=== PATIENT | female | born 1955 | race Caucasian/White ===

== ENCOUNTER 2019-01-21 09:39 | Emergency (ER) | payer MEDICARE, MEDICAID ==
[~2019-01-21] VITALS: Ht 162.6 cm; Wt 97.8 kg
[~2019-01-21 09:39] MED LIST: HYDR-3686 PO; LORA1TAB PO; METH-603 PO; NORCO10T PO; PROM25TA14
[2019-01-21] MEDS ORDERED: LORazepam 1 MG tablet PO ONE (10:15)
[2019-01-21] MEDS ORDERED: ondansetron 4mg rapidly disintigrating tab PO ONE (10:25)
[2019-01-21 10:57] VITALS: BP 124/73
== END 2019-01-21 10:58 | disposition home or self-care (01) ==
LOC: ER 09:40
DX: F41.9 Anxiety disorder, unspecified (principal); R11.2 Nausea with vomiting, unspecified; F32.9 Major depressive disorder, single episode, unspecified; G89.29 Other chronic pain; Z88.0 Allergy status to penicillin; Z88.5 Allergy status to narcotic agent; Z79.899 Other long term (current) drug therapy; Z56.0 Unemployment, unspecified
CPT/HCPCS: 99284; J2405

== ENCOUNTER 2021-01-20 08:06 | Emergency (ER) | payer MEDICARE, MEDICAID ==
[~2021-01-20] VITALS: Ht 162.6 cm; Wt 95.0 kg
[2021-01-20 08:34] VITALS: BP 147/91
== END 2021-01-20 09:13 | disposition home or self-care (01) ==
LOC: ER 08:06
DX: S80.211A Abrasion, right knee, initial encounter (principal); G89.29 Other chronic pain; Z87.01 Personal history of pneumonia (recurrent); Z86.19 Personal history of other infectious and parasitic diseases; Z56.0 Unemployment, unspecified; W19.XXXA Unspecified fall, initial encounter; Y93.89 Activity, other specified; Y92.89 Other specified places as the place of occurrence of the external cause; Y99.8 Other external cause status
CPT/HCPCS: 99281; 99282

== ENCOUNTER 2023-04-18 17:53 | Emergency (ER) | payer BC, MEDICAID ==
[~2023-04-18] VITALS: Ht 162.6 cm; Wt 80.0 kg
[2023-04-18 17:58] VITALS: BP 117/63; PULSE 98; RESP 16; TEMP 97.9; O2SAT 98
[2023-04-18 18:46] LABS: BASOPHILS % (AUTO) 0.9 % (0-1); EOSINOPHILS # (AUTO) 0.1 X10'3 (0-0.9); EOSINOPHILS % (AUTO) 1.6 % (0-6); HEMOGLOBIN 14.4 g/dl (12.0-16.0); LYMPHOCYTES # (AUTO) 1.1 X10'3 (1.1-4.8); LYMPHOCYTES % (AUTO) 20.9 % (21-51); MEAN CORPUSCULAR HGB CONC 32.6 g/dL (33.0-36.5); MEAN PLATELET VOLUME 9.1 FL (7.4-10.4); MONOCYTES # (AUTO) 0.3 X10'3 (0-0.9); NEUTROPHILS # (AUTO) 3.7 X10'3 (1.8-7.7); NEUTROPHILS % (AUTO) 70.6 % (42-75); PLATELET COUNT 84 X10'3 (140-440); RED BLOOD COUNT 4.78 X10'6 (4.20-5.60); RED CELL DISTRIBUTION WIDTH 15.4 % (11.5-14.5); WHITE BLOOD COUNT 5.2 X10'3 (4.5-11.0)
[2023-04-18 19:13] LABS: ALANINE AMINOTRANSFERASE 30 U/L (12-78); ALBUMIN 3.3 G/DL (3.4-5.0); ALBUMIN/GLOBULIN RATIO 0.8 (1.1-1.5); ALKALINE PHOSPHATASE 123 IU/L (46-116); AMYLASE 35 U/L (25-115); ANION GAP 6 (8-16); ASPARTATE AMINO TRANSFERASE 69 U/L (10-37); BILIRUBIN,TOTAL 0.5 MG/DL (0.1-1.0); BLOOD UREA NITROGEN 21 MG/DL (7-18); BUN/CREATININE RATIO 22.8 (10.0-20.0); CALCIUM 9.5 MG/DL (8.5-10.1); CHLORIDE 104 MMOL/L (99-107); CREATININE 0.92 MG/DL (0.40-0.90); GLUCOSE 93 MG/DL (70-104); POTASSIUM 4.3 MMOL/L (3.5-5.1); SODIUM 140 MMOL/L (135-145); TOTAL CARBON DIOXIDE 29.9 MMOL/L (24-32); TOTAL PROTEIN 7.7 G/DL (6.4-8.2); eCRCL 50 ML/MIN; eGFR 61 ML/MIN
[2023-04-18 19:14] LABS: LIPASE 31 U/L (16-77)
== END 2023-04-18 22:02 | disposition left against medical advice (07) ==
LOC: ER 17:54
DX: R42 Dizziness and giddiness (principal); R53.1 Weakness; Z53.21 Procedure and treatment not carried out due to patient leaving prior to being seen by health care provider
CPT/HCPCS: 36415; 80053; 82140; 82150; 83690; 85025; 99281

== ENCOUNTER 2024-03-25 10:37 | Inpatient (IN) | payer MEDICARE, MEDICAID ==
[~2024-03-25] VITALS: Ht 160 cm; Wt 75.0 kg
[~2024-03-25 10:37] MED LIST changes: +ALBU10.7; +APIX5TAB3 PO; +BENZ200C53; +BUPR1FIL20; +CEFD300C3 PO; +FLUT1BLS16; -HYDR-3686 PO; -METH-603 PO; +MIRT-88 PO; +NALO4SPR5; +NICO-631 TOP; -NORCO10T PO; +ONDA-243 PO; +PRED20TA PO; -PROM25TA14
[2024-03-25] MEDS: ondansetron/PF 4mg/2ml inj IV ONE (11:35)
[2024-03-25] MEDS: lactulose 20gm/30ml cup PO ONE (11:36)
[2024-03-25] MEDS: morphine 4 MG/ML inj SYRINge IV ONE ×2 (11:36→12:23)
[2024-03-25 11:52] LABS: BILIRUBIN,URINE NEGATIVE (Neg); CLARITY,URINE CLOUDY (Clear); COLOR,URINE YELLOW (Yellow); GLUCOSE, URINE NEGATIVE (Neg); KETONES,URINE NEGATIVE (Neg); LEUKOCYTE ESTERASE ,URINE NEGATIVE (Neg); NITRITES, URINE NEGATIVE (Neg); OCCULT BLOOD,URINE NEGATIVE (Neg); PROTEIN,URINE NEGATIVE (Neg)
[2024-03-25 11:59] LABS: BACTERIA,URINE 4+ /HPF (Neg); RBC,URINE NONE SEEN /HPF (0-2); SQUAMOUS EPITHELIAL CELL,UR MANY /LPF (FEW); UA COLLECTION TYPE CLN CATCH MIDSTREAM; WBC,URINE 0-4 /HPF (0-4)
[2024-03-25 12:00] LABS: AMORPHOUS PHOSPHATES 1+; MUCUS STRANDS MANY /LPF (Neg)
[2024-03-25 12:53] LABS: BASOPHILS % (AUTO) 0.3 % (0-1); EOSINOPHILS % (AUTO) 0.2 % (0-6); HEMATOCRIT 50.8 % (35.0-45.0); HEMOGLOBIN 17.1 g/dl (12.0-16.0); LYMPHOCYTES % (AUTO) 9.2 % (21-51); MEAN CORPUSCULAR HEMOGLOBIN 31.4 PG (27.0-31.0); MEAN CORPUSCULAR HGB CONC 33.6 g/dL (33.0-36.5); MEAN CORPUSCULAR VOLUME 93.5 FL (78-98); MEAN PLATELET VOLUME 9.2 FL (7.4-10.4); MONOCYTES # (AUTO) 0.6 X10'3 (0-0.9); MONOCYTES % (AUTO) 5.7 % (2-12); NEUTROPHILS # (AUTO) 9.2 X10'3 (1.8-7.7); NEUTROPHILS % (AUTO) 84.6 % (42-75); PLATELET COUNT 75 X10'3 (140-440); RED BLOOD COUNT 5.44 X10'6 (4.20-5.60); WHITE BLOOD COUNT 10.9 X10'3 (4.5-11.0)
[2024-03-25 13:06] LABS: ALANINE AMINOTRANSFERASE 15 U/L (12-78); ALBUMIN 3.2 G/DL (3.4-5.0); ALBUMIN/GLOBULIN RATIO 0.7 (1.1-1.5); ALKALINE PHOSPHATASE 124 IU/L (46-116); ANION GAP 11 (8-16); ASPARTATE AMINO TRANSFERASE 20 U/L (10-37); BILIRUBIN,TOTAL 1.7 MG/DL (0.1-1.0); BLOOD UREA NITROGEN 18 MG/DL (7-18); BUN/CREATININE RATIO 16.4 (10.0-20.0); CALCIUM 9.8 MG/DL (8.5-10.1); CHLORIDE 101 MMOL/L (99-107); GLUCOSE 124 MG/DL (70-104); POTASSIUM 3.7 MMOL/L (3.5-5.1); SODIUM 138 MMOL/L (135-145); TOTAL CARBON DIOXIDE 25.8 MMOL/L (24-32); TOTAL PROTEIN 8.1 G/DL (6.4-8.2); eCRCL 39 ML/MIN; eGFR 49 ML/MIN
[2024-03-25] MEDS ORDERED: hyoscyamine 0.125mg TAB.SUBL SL PRN (15:15)
[2024-03-25] MEDS ORDERED: acetaminophen 325mg tablet PO PRN (15:15)
[2024-03-25] MEDS ORDERED: LORazepam 2 mg/ml vial IV PRN (15:15)
[2024-03-25] MEDS ORDERED: albuterol 2.5 MG/3 ML nebule NEB PRN (15:15)
[2024-03-25] MEDS ORDERED: ipratropium/albuterol 3ml nebule NEB PRN (15:15)
[2024-03-25] MEDS ORDERED: HYDROmorphone/PF 0.2 MG/ML SYRINGE IV PRN (15:15)
[2024-03-25] MEDS ORDERED: mag hydrox/Alum hydrox/simeth 30ml oral suspension PO PRN (15:15)
[2024-03-25] MEDS ORDERED: POTA-192 PO (16:04)
[2024-03-25] MEDS ORDERED: HALO2ORA3 PO (16:04)
[2024-03-25] MEDS ORDERED: FENT1PAT13 TOP (16:04)
[2024-03-25] MEDS ORDERED: APIX5TAB3 PO (16:04)
[2024-03-25] MEDS ORDERED: HYDR2TAB28 PO (16:04)
[2024-03-25] MEDS ORDERED: SENN-25 PO (16:04)
[2024-03-25] MEDS: HYDROmorphone 1 mg/ml syringe IV ONE (17:28)
[2024-03-25 18:00] VITALS: BP 154/73; PULSE 118; RESP 18; TEMP 97.7; O2SAT 98
[2024-03-25 18:06] VITALS: PULSE 102; RESP 17; O2SAT 92
[2024-03-25] MEDS: morphine 10mg/0.5ml (conc. morphine) oral syringe PO PRN (20:03)
[2024-03-25 21:08] VITALS: PULSE 108; RESP 18; O2SAT 93
[2024-03-25 22:00] VITALS: BP 124/63; PULSE 103; RESP 16; TEMP 97.3; O2SAT 96
[2024-03-26] MEDS: HYDROmorphone inj. 0.5 MG/0.5 ML DISP.SYRIN IV PRN (07:01)
[2024-03-26 08:25] VITALS: PULSE 102; RESP 16; O2SAT 88
[2024-03-26] MEDS: LORazepam 0.5 MG tablet PO PRN (08:40)
[2024-03-26] MEDS ORDERED: haloperidol 10mg/5ml UD oral solution PO PRN (09:50)
[2024-03-26] MEDS ORDERED: sennosides 8.6mg tablet PO PRN (09:50)
[2024-03-26] MEDS: morphine 10mg/0.5ml (conc. morphine) oral syringe PO PRN (10:10)
[2024-03-26] MEDS: nicotine 21mg patch - 24 hr TD SCH (10:10)
[2024-03-26] MEDS: fentaNYL 100MCG/hour patch.TD72 TD SCH (10:38)
[2024-03-26] MEDS: magnesium hydroxide 30ml (MOM) UD suspension PO PRN (11:47)
[2024-03-26 22:00] VITALS: BP 109/62; PULSE 104; RESP 16; TEMP 97.6; O2SAT 93
[2024-03-26] MEDS: temazepam 15mg capsule PO PRN (22:54)
[2024-03-27 07:50] VITALS: PULSE 88; RESP 16; O2SAT 90
[2024-03-27] MEDS: ondansetron/PF 4mg/2ml inj IV PRN (09:56)
[2024-03-27 10:00] VITALS: BP 107/56; PULSE 97; RESP 16; TEMP 97.7; O2SAT 92
[2024-03-27 18:00] VITALS: BP 112/58; PULSE 89; RESP 18; TEMP 98; O2SAT 91
[2024-03-27 22:00] VITALS: BP 107/61; PULSE 96; RESP 16; TEMP 97.3; O2SAT 94
[2024-03-27] MEDS: HYDROmorphone 2mg tablet PO PRN (22:19)
[2024-03-28] MEDS: diazepam 5mg tablet PO ONE (04:04)
[2024-03-28 10:00] VITALS: BP 94/61; PULSE 88; RESP 16; TEMP 98.7; O2SAT 94
[2024-03-28 10:42] VITALS: PULSE 87; RESP 16; O2SAT 92
[2024-03-28 11:07] VITALS: RESP 16
== END 2024-03-28 13:37 | disposition hospice, home (50) | DRG 443 ==
LOC: ER 10:37 → ED HOLD 15:20 → ORTHO 4S 17:50
PROVIDERS: ADMIT Family Medicine; ATTEND Family Medicine
DX: K72.10 Chronic hepatic failure without coma (principal); D69.59 Other secondary thrombocytopenia; Z66 Do not resuscitate; F32.A Depression, unspecified; F41.9 Anxiety disorder, unspecified; G89.29 Other chronic pain; M54.9 Dorsalgia, unspecified; F17.210 Nicotine dependence, cigarettes, uncomplicated; Z86.73 Personal history of transient ischemic attack (TIA), and cerebral infarction without residual deficits; I25.2 Old myocardial infarction; Z88.0 Allergy status to penicillin; Z79.01 Long term (current) use of anticoagulants; Z79.899 Other long term (current) drug therapy; Z51.5 Encounter for palliative care; Z86.711 Personal history of pulmonary embolism; R29.6 Repeated falls
CPT/HCPCS: 74018; 80053; 81001; 85025; 87081; 94760; 96374; 96375; 96376; 99285; A4615; G0378; J1170; J2270; J2405

== ENCOUNTER 2024-07-12 14:39 | Inpatient (IN) | payer MEDICARE, MEDICAID ==
[~2024-07-12] VITALS: Ht 162.6 cm; Wt 84.0 kg
[~2024-07-12 14:39] MED LIST changes: -ALBU10.7; -BENZ200C53; -BUPR1FIL20; -CEFD300C3 PO; +FENT1PAT13 TOP; -FLUT1BLS16; +HALO2ORA3 PO; +HYDR2TAB28 PO; -MIRT-88 PO; -NALO4SPR5; -NICO-631 TOP; -ONDA-243 PO; +POTA-192 PO; -PRED20TA PO; +SENN-25 PO
[2024-07-12 16:10] LABS: BASOPHILS % (AUTO) 0.1 % (0-1); EOSINOPHILS % (AUTO) 0.2 % (0-6); HEMATOCRIT 41.8 % (35.0-45.0); HEMOGLOBIN 14.1 g/dl (12.0-16.0); LYMPHOCYTES # (AUTO) 0.8 X10'3 (1.1-4.8); LYMPHOCYTES % (AUTO) 4.8 % (21-51); MEAN CORPUSCULAR HEMOGLOBIN 31.1 PG (27.0-31.0); MEAN CORPUSCULAR HGB CONC 33.7 g/dL (33.0-36.5); MEAN CORPUSCULAR VOLUME 92.3 FL (78-98); MEAN PLATELET VOLUME 8.8 FL (7.4-10.4); MONOCYTES % (AUTO) 5.8 % (2-12); NEUTROPHILS # (AUTO) 14.7 X10'3 (1.8-7.7); NEUTROPHILS % (AUTO) 89.1 % (42-75); PLATELET COUNT 108 X10'3 (140-440); RED BLOOD COUNT 4.53 X10'6 (4.20-5.60); RED CELL DISTRIBUTION WIDTH 14.4 % (11.5-14.5); WHITE BLOOD COUNT 16.5 X10'3 (4.5-11.0)
[2024-07-12 16:32] LABS: GLUCOSE 116 MG/DL (70-104); SODIUM 135 MMOL/L (135-145)
[2024-07-12 16:33] LABS: ALBUMIN 2.4 G/DL (3.4-5.0); ALBUMIN/GLOBULIN RATIO 0.6 (1.1-1.5); ALKALINE PHOSPHATASE 133 IU/L (46-116); ANION GAP 9 (8-16); ASPARTATE AMINO TRANSFERASE 16 U/L (10-37); BILIRUBIN,TOTAL 1.9 MG/DL (0.1-1.0); BLOOD UREA NITROGEN 21 MG/DL (7-18); BUN/CREATININE RATIO 21.2 (10.0-20.0); CALCIUM 9.2 MG/DL (8.5-10.1); CHLORIDE 101 MMOL/L (99-107); CREATININE 0.99 MG/DL (0.40-0.90); POTASSIUM 3.8 MMOL/L (3.5-5.1); TOTAL CARBON DIOXIDE 24.9 MMOL/L (24-32); TOTAL PROTEIN 6.6 G/DL (6.4-8.2); eCRCL 46 ML/MIN; eGFR 55 ML/MIN
[2024-07-12] MEDS: normal saline 1000ML IV soln IVB ONE (16:34)
[2024-07-12 16:41] LABS: PRO BRAIN NATRIURETIC PEPTIDE 338 PG/ML (0-125)
[2024-07-12 17:04] LABS: CREATINE KINASE 16 U/L (26-192)
[2024-07-12 17:18] LABS: ALANINE AMINOTRANSFERASE < 6 U/L (12-78); SALICYLATE 3.2 MG/DL (4.0-20.0)
[2024-07-12 17:19] LABS: ACETAMINOPHEN < 2.0 UG/ML (10-30); ETHANOL < 10 MG/DL (<10)
[2024-07-12] MEDS: normal saline 1000ml 1,000 ML IV ONE (17:35)
[2024-07-12] MEDS: CefTRIAXone/D5W-Rocephin 1gm 50 ML IV ONE (17:36)
[2024-07-12 18:06] LABS: URINE AMPHETAMINE SCREEN NEGATIVE (Neg); URINE BARBITUATE SCREEN NEGATIVE (Neg); URINE BENZODIAZEPINES SCREEN POSITIVE (Neg); URINE CANNABINOID SCREEN NEGATIVE (Neg); URINE COCAINE SCREEN NEGATIVE (Neg); URINE METHADONE SCREEN NEGATIVE (Neg); URINE OPIATE SCREEN POSITIVE (Neg); URINE PHENCYCLIDINE SCREEN NEGATIVE (Neg)
[2024-07-12 18:10] LABS: BILIRUBIN,URINE MODERATE (Neg); CLARITY,URINE CLEAR (Clear); COLOR,URINE AMBER (Yellow); GLUCOSE, URINE NEGATIVE (Neg); KETONES,URINE TRACE mg/dl (Neg); LEUKOCYTE ESTERASE ,URINE NEGATIVE (Neg); OCCULT BLOOD,URINE NEGATIVE (Neg); PROTEIN,URINE 30 mg/dl (Neg)
[2024-07-12] MEDS ORDERED: acetaminophen 650mg rectal suppository RC PRN (18:10)
[2024-07-12] MEDS ORDERED: diphenhydrAMINE 25mg capsule PO PRN (18:10)
[2024-07-12] MEDS ORDERED: acetaminophen 325mg tablet PO PRN ×2 (18:10)
[2024-07-12] MEDS ORDERED: magnesium hydroxide 30ml (MOM) UD suspension PO PRN (18:10)
[2024-07-12] MEDS ORDERED: ipratropium/albuterol 3ml nebule NEB PRN (18:10)
[2024-07-12] MEDS ORDERED: mag hydrox/Alum hydrox/simeth 30ml oral suspension PO PRN (18:10)
[2024-07-12] MEDS ORDERED: bisacodyl 10mg suppository rectal RC PRN (18:10)
[2024-07-12] MEDS ORDERED: morphine 2 MG/ML inj. syringe IV PRN ×2 (18:10)
[2024-07-12] MEDS ORDERED: diphenhydrAMINE 50 mg/ml inj IV PRN (18:10)
[2024-07-12] MEDS ORDERED: ondansetron/PF 4mg/2ml inj IV PRN (18:10)
[2024-07-12] MEDS ORDERED: ondansetron 4mg rapidly disintigrating tab PO PRN (18:10)
[2024-07-12 18:18] LABS: NITRITES, URINE NEGATIVE (Neg); UA COLLECTION TYPE STRAIGHT CATH
[2024-07-12] MEDS: azithromycin/NS 500mg/250ml 250 ML IV ONE (18:19)
[2024-07-12 18:24] LABS: BACTERIA,URINE 4+ /HPF (Neg); COARSE GRANULAR CAST 0-3 /LPF (NEGATIVE); RBC,URINE NONE SEEN /HPF (0-2); SQUAMOUS EPITHELIAL CELL,UR FEW /LPF (FEW); WBC,URINE 0-4 /HPF (0-4)
[2024-07-12 18:50] LABS: APTT 29 SECONDS (22-32); D-DIMER 6.48 MG/L FEU (0-0.50); INR 1.8 INR; PROTHROMBIN TIME 17.7 SECONDS (9.0-12.0)
[2024-07-12] MEDS: normal saline 1000ml 1,000 ML IV SCH (19:10)
[2024-07-12 19:24] LABS: PHOSPHORUS 3.5 MG/DL (2.3-4.5)
[2024-07-12] MEDS: normal saline 1000ml 1,000 ML IVB ONE (19:52)
[2024-07-12] MEDS: methylPREDNISolone sod succ 125mg/2ml vial IV SCH (19:54)
[2024-07-12] MEDS: docusate sod 100mg capsule PO SCH (19:57)
[2024-07-12 20:07] VITALS: PULSE 137; RESP 20; O2SAT 95
[2024-07-12] MEDS ORDERED: temazepam 15mg capsule PO PRN (21:00)
[2024-07-12] MEDS: ringers solution, lacted 1,000 ML IV ONE (22:14)
[2024-07-12] MEDS: midodrine 5mg tablet PO ONE (23:12)
[2024-07-13] VITALS (10 sets, daily range): BP systolic 96–133; BP diastolic 43–77; PULSE 67–112; RESP 17–21; TEMP 97.2–98.2; O2SAT 92–95
[2024-07-13 06:35] LABS: BASOPHILS % (AUTO) 0 % (0-1); EOSINOPHILS % (AUTO) 0.1 % (0-6); HEMATOCRIT 34.8 % (35.0-45.0); HEMOGLOBIN 11.8 g/dl (12.0-16.0); LYMPHOCYTES # (AUTO) 0.5 X10'3 (1.1-4.8); LYMPHOCYTES % (AUTO) 5.6 % (21-51); MEAN CORPUSCULAR HEMOGLOBIN 31.2 PG (27.0-31.0); MEAN CORPUSCULAR HGB CONC 33.9 g/dL (33.0-36.5); MEAN CORPUSCULAR VOLUME 92.1 FL (78-98); MEAN PLATELET VOLUME 8.9 FL (7.4-10.4); MONOCYTES # (AUTO) 0.2 X10'3 (0-0.9); NEUTROPHILS # (AUTO) 7.8 X10'3 (1.8-7.7); NEUTROPHILS % (AUTO) 92.3 % (42-75); PLATELET COUNT 82 X10'3 (140-440); RED BLOOD COUNT 3.77 X10'6 (4.20-5.60); RED CELL DISTRIBUTION WIDTH 14.3 % (11.5-14.5); WHITE BLOOD COUNT 8.5 X10'3 (4.5-11.0)
[2024-07-13 06:44] LABS: ALBUMIN 1.7 G/DL (3.4-5.0); ALBUMIN/GLOBULIN RATIO 0.5 (1.1-1.5); ALKALINE PHOSPHATASE 101 IU/L (46-116); ANION GAP 7 (8-16); ASPARTATE AMINO TRANSFERASE 14 U/L (10-37); BILIRUBIN,TOTAL 1.2 MG/DL (0.1-1.0); BLOOD UREA NITROGEN 17 MG/DL (7-18); BUN/CREATININE RATIO 26.2 (10.0-20.0); CALCIUM 7.8 MG/DL (8.5-10.1); CHLORIDE 110 MMOL/L (99-107); CREATININE 0.65 MG/DL (0.40-0.90); SODIUM 138 MMOL/L (135-145); TOTAL CARBON DIOXIDE 20.6 MMOL/L (24-32); eCRCL 70 ML/MIN; eGFR 90 ML/MIN
[2024-07-13 06:58] LABS: ALANINE AMINOTRANSFERASE 6 U/L (12-78); GLUCOSE 115 MG/DL (70-104)
[2024-07-13] MEDS: levoFLOXACIN-Levaquin 500mg/D5 100 ML IV SCH (08:46)
[2024-07-13] MEDS: pantoprazole 40mg Tablet.DR PO SCH (08:46)
[2024-07-13] MEDS: HYDROcodone/acetaminophen 10/325mg tab PO PRN (11:17)
[2024-07-13] MEDS ORDERED: pneumococcal 23-VAL P-sac vacc 25 mcg/0.5ml vial IMVAC ONE (11:30)
[2024-07-13] MEDS: albumin (Human) 5% 250ml 250 ML IV ONE (15:11)
[2024-07-13] MEDS: lactose-reduced food (Ensure Enlive) - 237ml bottle PO SCH (18:00)
[2024-07-14] VITALS (10 sets, daily range): BP systolic 102–134; BP diastolic 45–87; PULSE 61–97; RESP 16–22; TEMP 97.3–97.7; O2SAT 92–97
[2024-07-14 07:40] LABS: ALANINE AMINOTRANSFERASE 10 U/L (12-78); ALBUMIN 2.2 G/DL (3.4-5.0); ALBUMIN/GLOBULIN RATIO 0.7 (1.1-1.5); ALKALINE PHOSPHATASE 98 IU/L (46-116); ANION GAP 8 (8-16); BILIRUBIN,TOTAL 1.1 MG/DL (0.1-1.0); BLOOD UREA NITROGEN 23 MG/DL (7-18); BUN/CREATININE RATIO 30.7 (10.0-20.0); CALCIUM 8.5 MG/DL (8.5-10.1); CHLORIDE 108 MMOL/L (99-107); CREATININE 0.75 MG/DL (0.40-0.90); GLUCOSE 107 MG/DL (70-104); SODIUM 137 MMOL/L (135-145); TOTAL CARBON DIOXIDE 20.8 MMOL/L (24-32); TOTAL PROTEIN 5.5 G/DL (6.4-8.2); eCRCL 60 ML/MIN; eGFR 76 ML/MIN
[2024-07-14 07:54] LABS: ASPARTATE AMINO TRANSFERASE 28 U/L (10-37); POTASSIUM 4.1 MMOL/L (3.5-5.1)
[2024-07-14 08:47] LABS: BASOPHILS % (AUTO) 0.1 % (0-1); EOSINOPHILS % (AUTO) 0.1 % (0-6); HEMATOCRIT 35.7 % (35.0-45.0); LYMPHOCYTES # (AUTO) 0.5 X10'3 (1.1-4.8); LYMPHOCYTES % (AUTO) 5.5 % (21-51); MEAN CORPUSCULAR HEMOGLOBIN 31.1 PG (27.0-31.0); MEAN CORPUSCULAR HGB CONC 33.7 g/dL (33.0-36.5); MEAN CORPUSCULAR VOLUME 92.2 FL (78-98); MEAN PLATELET VOLUME 8.9 FL (7.4-10.4); MONOCYTES # (AUTO) 0.2 X10'3 (0-0.9); MONOCYTES % (AUTO) 2.8 % (2-12); NEUTROPHILS # (AUTO) 8.1 X10'3 (1.8-7.7); NEUTROPHILS % (AUTO) 91.5 % (42-75); PLATELET COUNT 81 X10'3 (140-440); RED BLOOD COUNT 3.87 X10'6 (4.20-5.60); RED CELL DISTRIBUTION WIDTH 14.2 % (11.5-14.5); WHITE BLOOD COUNT 8.8 X10'3 (4.5-11.0)
[2024-07-14] MEDS ORDERED: haloperidol 10mg/5ml UD oral solution PO PRN ×2 (12:40→13:05)
[2024-07-14] MEDS ORDERED: sennosides 8.6mg tablet PO PRN (12:40)
[2024-07-14] MEDS: diazepam inj 5 MG/ML inj. IV ONE (12:47)
[2024-07-14] MEDS ORDERED: haloperidol 1mg tablet PO PRN (13:38)
[2024-07-14] MEDS: diazepam inj 5 MG/ML inj. IM ONE (19:36)
[2024-07-14] MEDS: diazepam inj 5 MG/ML inj. IV PRN (20:24)
[2024-07-15 04:29] VITALS: RESP 17; O2SAT 95
[2024-07-15] MEDS: diazepam inj 5 MG/ML inj. IM PRN (05:41)
[2024-07-15 06:00] VITALS: BP 140/61; PULSE 71; RESP 16; TEMP 98.4; O2SAT 95
[2024-07-15 06:44] LABS: BASOPHILS % (AUTO) 0.3 % (0-1); EOSINOPHILS % (AUTO) 0 % (0-6); HEMATOCRIT 37.8 % (35.0-45.0); HEMOGLOBIN 12.7 g/dl (12.0-16.0); LYMPHOCYTES # (AUTO) 0.5 X10'3 (1.1-4.8); LYMPHOCYTES % (AUTO) 7.2 % (21-51); MEAN CORPUSCULAR HEMOGLOBIN 31.2 PG (27.0-31.0); MEAN CORPUSCULAR HGB CONC 33.7 g/dL (33.0-36.5); MEAN CORPUSCULAR VOLUME 92.7 FL (78-98); MEAN PLATELET VOLUME 8.3 FL (7.4-10.4); MONOCYTES # (AUTO) 0.3 X10'3 (0-0.9); NEUTROPHILS # (AUTO) 5.6 X10'3 (1.8-7.7); NEUTROPHILS % (AUTO) 87.5 % (42-75); PLATELET COUNT 100 X10'3 (140-440); RED BLOOD COUNT 4.08 X10'6 (4.20-5.60); RED CELL DISTRIBUTION WIDTH 14.9 % (11.5-14.5); WHITE BLOOD COUNT 6.4 X10'3 (4.5-11.0)
[2024-07-15 07:21] LABS: ALANINE AMINOTRANSFERASE 16 U/L (12-78); ALBUMIN 2.5 G/DL (3.4-5.0); ALBUMIN/GLOBULIN RATIO 0.7 (1.1-1.5); ALKALINE PHOSPHATASE 102 IU/L (46-116); ANION GAP 13 (8-16); ASPARTATE AMINO TRANSFERASE 25 U/L (10-37); BILIRUBIN,TOTAL 1.2 MG/DL (0.1-1.0); BLOOD UREA NITROGEN 21 MG/DL (7-18); BUN/CREATININE RATIO 33.3 (10.0-20.0); CALCIUM 8.7 MG/DL (8.5-10.1); CHLORIDE 110 MMOL/L (99-107); CREATININE 0.63 MG/DL (0.40-0.90); GLUCOSE 105 MG/DL (70-104); POTASSIUM 3.8 MMOL/L (3.5-5.1); SODIUM 142 MMOL/L (135-145); TOTAL CARBON DIOXIDE 19.2 MMOL/L (24-32); TOTAL PROTEIN 5.9 G/DL (6.4-8.2); eCRCL 72 ML/MIN; eGFR > 90 ML/MIN
[2024-07-15 08:00] VITALS: RESP 16; O2SAT 95
[2024-07-15 11:00] VITALS: BP 135/65; PULSE 64; RESP 13; TEMP 97.6; O2SAT 64
[2024-07-15 18:00] VITALS: BP 159/68; PULSE 84; RESP 18; TEMP 97.9; O2SAT 96
[2024-07-15 20:00] VITALS: RESP 18; O2SAT 96
[2024-07-16] VITALS (7 sets, daily range): BP systolic 136–150; BP diastolic 59–69; PULSE 59–97; RESP 14–20; TEMP 97.3–98.6; O2SAT 94–98
[2024-07-16 06:57] LABS: BASOPHILS % (AUTO) 0.3 % (0-1); EOSINOPHILS % (AUTO) 0.1 % (0-6); HEMATOCRIT 40.5 % (35.0-45.0); HEMOGLOBIN 13.5 g/dl (12.0-16.0); LYMPHOCYTES # (AUTO) 0.7 X10'3 (1.1-4.8); LYMPHOCYTES % (AUTO) 14.9 % (21-51); MEAN CORPUSCULAR HEMOGLOBIN 30.6 PG (27.0-31.0); MEAN CORPUSCULAR HGB CONC 33.2 g/dL (33.0-36.5); MEAN CORPUSCULAR VOLUME 92.2 FL (78-98); MEAN PLATELET VOLUME 8.3 FL (7.4-10.4); MONOCYTES # (AUTO) 0.4 X10'3 (0-0.9); MONOCYTES % (AUTO) 7.7 % (2-12); NEUTROPHILS # (AUTO) 3.7 X10'3 (1.8-7.7); RED CELL DISTRIBUTION WIDTH 14.5 % (11.5-14.5); WHITE BLOOD COUNT 4.8 X10'3 (4.5-11.0)
[2024-07-16 07:05] LABS: PLATELET COUNT 89 X10'3 (140-440)
[2024-07-16 07:09] LABS: ALANINE AMINOTRANSFERASE 23 U/L (12-78); ALBUMIN 2.5 G/DL (3.4-5.0); ALBUMIN/GLOBULIN RATIO 0.7 (1.1-1.5); ALKALINE PHOSPHATASE 100 IU/L (46-116); ANION GAP 12 (8-16); ASPARTATE AMINO TRANSFERASE 50 U/L (10-37); BILIRUBIN,TOTAL 1.8 MG/DL (0.1-1.0); BLOOD UREA NITROGEN 14 MG/DL (7-18); BUN/CREATININE RATIO 31.1 (10.0-20.0); CALCIUM 8.2 MG/DL (8.5-10.1); CHLORIDE 110 MMOL/L (99-107); CREATININE 0.45 MG/DL (0.40-0.90); GLUCOSE 86 MG/DL (70-104); SODIUM 143 MMOL/L (135-145); TOTAL CARBON DIOXIDE 21.2 MMOL/L (24-32); TOTAL PROTEIN 5.9 G/DL (6.4-8.2); eCRCL 100 ML/MIN; eGFR > 90 ML/MIN
[2024-07-16 07:10] LABS: POTASSIUM 3.6 MMOL/L (3.5-5.1)
[2024-07-17] VITALS (8 sets, daily range): BP systolic 125–151; BP diastolic 38–72; PULSE 63–94; RESP 14–20; TEMP 96.9–98.1; O2SAT 94–99
[2024-07-17 06:32] LABS: BASOPHILS % (AUTO) 0.4 % (0-1); EOSINOPHILS % (AUTO) 0.5 % (0-6); HEMATOCRIT 40.6 % (35.0-45.0); HEMOGLOBIN 13.6 g/dl (12.0-16.0); LYMPHOCYTES # (AUTO) 0.8 X10'3 (1.1-4.8); LYMPHOCYTES % (AUTO) 15.8 % (21-51); MEAN CORPUSCULAR HEMOGLOBIN 30.9 PG (27.0-31.0); MEAN CORPUSCULAR HGB CONC 33.5 g/dL (33.0-36.5); MEAN CORPUSCULAR VOLUME 92.2 FL (78-98); MEAN PLATELET VOLUME 8.2 FL (7.4-10.4); MONOCYTES # (AUTO) 0.3 X10'3 (0-0.9); MONOCYTES % (AUTO) 6.3 % (2-12); NEUTROPHILS # (AUTO) 3.7 X10'3 (1.8-7.7); PLATELET COUNT 75 X10'3 (140-440); RED CELL DISTRIBUTION WIDTH 14.5 % (11.5-14.5); WHITE BLOOD COUNT 4.7 X10'3 (4.5-11.0)
[2024-07-17 06:53] LABS: ALANINE AMINOTRANSFERASE 25 U/L (12-78); ALBUMIN 2.5 G/DL (3.4-5.0); ALBUMIN/GLOBULIN RATIO 0.8 (1.1-1.5); ALKALINE PHOSPHATASE 97 IU/L (46-116); ANION GAP 9 (8-16); ASPARTATE AMINO TRANSFERASE 36 U/L (10-37); BILIRUBIN,TOTAL 2.1 MG/DL (0.1-1.0); BLOOD UREA NITROGEN 13 MG/DL (7-18); BUN/CREATININE RATIO 19.7 (10.0-20.0); CALCIUM 8.3 MG/DL (8.5-10.1); CHLORIDE 110 MMOL/L (99-107); CREATININE 0.66 MG/DL (0.40-0.90); GLUCOSE 90 MG/DL (70-104); SODIUM 142 MMOL/L (135-145); TOTAL CARBON DIOXIDE 22.7 MMOL/L (24-32); TOTAL PROTEIN 5.6 G/DL (6.4-8.2); eCRCL 68 ML/MIN; eGFR 89 ML/MIN
[2024-07-17] MEDS: HYDROcodone/acetaminophen 5mg/325mg tablet PO PRN (07:10)
[2024-07-17] MEDS ORDERED: LEVO750T68 PO (11:25)
[2024-07-17] MEDS ORDERED: PRED10TA23 PO (11:25)
[2024-07-17] MEDS ORDERED: PROP10TA10 PO (11:25)
[2024-07-17] MEDS: apixaban 5mg tablet PO STA (13:17)
[2024-07-17] MEDS: propranolol 10mg tablet PO ONE (13:17)
[2024-07-17] MEDS: LORazepam 1 MG tablet PO PRN (15:52)
[2024-07-17] MEDS ORDERED: apixaban 5mg tablet PO SCH (20:00)
[2024-07-17] MEDS ORDERED: propranolol 10mg tablet PO SCH (20:00)
== END 2024-07-17 17:20 | DRG 871 ==
LOC: ER 14:40 → ED HOLD 18:10 → UNDOADMIN 18:10 → ED HOLD 18:16 → PCU 3S 07-13 02:30
PROVIDERS: ADMIT Family Medicine; ATTEND Family Medicine
PROC: BW251ZZ Computerized Tomography (CT Scan) of Chest, Abdomen and Pelvis using Low Osmolar Contrast (ICD-10-PCS; 2024-07-12)
PROC: CB121ZZ Planar Nuclear Medicine Imaging of Lungs and Bronchi using Technetium 99m (Tc-99m) (ICD-10-PCS; principal; 2024-07-13)
DX: A41.9 Sepsis, unspecified organism (principal); G93.41 Metabolic encephalopathy; J96.01 Acute respiratory failure with hypoxia; J18.9 Pneumonia, unspecified organism; K72.00 Acute and subacute hepatic failure without coma; N39.0 Urinary tract infection, site not specified; N17.9 Acute kidney failure, unspecified; I50.32 Chronic diastolic (congestive) heart failure; J44.0 Chronic obstructive pulmonary disease with (acute) lower respiratory infection; J44.1 Chronic obstructive pulmonary disease with (acute) exacerbation; E87.20 Acidosis, unspecified; K76.6 Portal hypertension; A09 Infectious gastroenteritis and colitis, unspecified; K72.10 Chronic hepatic failure without coma; B19.20 Unspecified viral hepatitis C without hepatic coma; F32.A Depression, unspecified; K76.82 Hepatic encephalopathy; F41.9 Anxiety disorder, unspecified; I11.0 Hypertensive heart disease with heart failure; G89.4 Chronic pain syndrome; F03.90 Unspecified dementia, unspecified severity, without behavioral disturbance, psychotic disturbance, mood disturbance, and anxiety; I27.20 Pulmonary hypertension, unspecified; K74.60 Unspecified cirrhosis of liver; M54.9 Dorsalgia, unspecified; D69.6 Thrombocytopenia, unspecified; Z88.0 Allergy status to penicillin; Z79.01 Long term (current) use of anticoagulants; Z79.899 Other long term (current) drug therapy; Z87.891 Personal history of nicotine dependence; Z86.711 Personal history of pulmonary embolism; Z86.73 Personal history of transient ischemic attack (TIA), and cerebral infarction without residual deficits
CPT/HCPCS: 36415; 70450; 71045; 71250; 74176; 76700; 78582; 80053; 80305; 80320; 80329; 81001; 82140; 82550; 83605; 83735; 83880; 84100; 84145; 84484; 85025; 85379; 85610; 85730; 87040; 87081; 87088; 90732; 93005; 93970; 94760; 97161; 97530; 99285; A4615; A9539; A9540; G0378; J0456; J0696; J1956; J2919; J3360; J7030; J7120; P9045